=== PATIENT | female | born 2005 ===

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

== ENCOUNTER → 2024-05-21 13:19 | Emergency (ER) | payer OTHER, SELFPAY | END | disposition left against medical advice (07) | PROVIDERS: Emergency Provider Nurse Practitioner | DX: Z53.21 Procedure and treatment not carried out due to patient leaving prior to being seen by health care provider (principal) | CPT/HCPCS: 99199 ==

== ENCOUNTER 2024-12-11 13:18 | Emergency (ER) | payer OTHER, SELFPAY ==
--- OUTSIDE RECORDS SUMMARY | 2024-12-11 13:25 | XMS_ITS | Encounter Summary ---
Author Organization [facility] Healthcare Address [address] [place] [address] Care Team Providers Care System Sales Consultant Name Role Phone Ebenezer Fairchild MD Primary Care Provider + Reason for Visit * Reason Onset Date Comments Vomiting 12/11/2024 Abdominal Pain 12/11/2024 Encounter Details Date Type Department Care Team (Late st Contact Info) Description 12/11/2024 Nurse Triage [facility] Primary Care at [address] [place] [phone] Ilia Umaña, RN Social History Tobacco Use Types Packs/Day Years Used Date Smoking Tobacco: Never Alcohol Use Standard Drinks/Week Comments Never 0 (1 standard drink = 0.6 oz pur e alcohol) PHQ-2 Answer Date Recorded PHQ-2 Total Score (If total score is 3 or more points, staff should administer the PHQ-9) 0 08/02/2024 PHQ-9 Answer Date Recorded PHQ-9 Total Score 11 04/02/2024 Personal Safety Answer Date Recorded Have you ever been in or are you currently in a harmful physical or emotional relationship or is someone making you feel afraid or unsafe? 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 Reason for Conversation Vomiting Background Nuvia Mcdonough Has c/o constant abdominal pain 4/10 this AM. Vomiting x 2-3 days, denies any vomiting today, yesterday had vomiting x 2. Denies vomiting any blood. Intermittent hot and cold flashes, unsure of temp.FIELD 3/10 at this time, yesterday 710. Intermittent dizziness, denies at this time. RN guideline sd mmends Go to ED/UCC or Office with PCP Approval. Secure chat to Jennifer Krueger NP: Provider contacted via secure chat for ED disposition consult. Recommendation from provider:Proceedto ED or CC. Attempted to call pt x 3 to advise, voicemail states person is not accepting calls. town marshal attempted to call Tena listed on HIPAA, unable to contact her. Jennifer Krueger NP has been notified of this per secure chat. Routed to PCP: FYI Disposition Go to ED/UCC Now (or to Office With PCP Approval) Reason for Disposition Constant abdominal pain lasting > 2 hours Protocols Used Flhclyir-Qpbsk-EJ * Telephone Encounter - Sadia Conroy RN - 12/11/2024 11:36 AM CDT Regarding: vomiting, hot and cold flashes, feeling irritated ----- Message from Danuta Cabrera sent at 12/11/2024 10:47 AM CDT ----- Symptom Based Call Chief Complaint(s): vomiting, hot and cold flashes, feeling irritated Duration: 2-3 days What type of symptom(s) is the patient experiencing? Non-Emergent. Is this a new or reoccurring symptom(s)? new What have you tried to help your symptom(s)? Tylenol, Robitussin, ibuprofen Why was appointment not scheduled? Appointment availability did not meet the patient's need. Additional Comments: Patient reports not feeling well stating she has been vomiting, hot and cold flashes, and feeling irritated. Does message need to be routed? Yes-Action Needed documented in this encounter Plan of Treatment Not on file documented as of this encounter Visit Diagnoses Not on filedocumented in this encounter Care Teams System Sales Consultant Relationship Specialty Start Date End Date Ebenezer Fairchild MD [address] [id number] PCP - General Family Medicine 04/02/24 documented as of this encounter
--- OUTSIDE RECORDS SUMMARY | 2024-12-11 13:25 | XMS_ITS | Referral Summary ---
Author Organization [facility] Address [address] [place] [address] Care Team Providers Care Planer Hand Name Role Phone Ebenezer Fairchild MD Primary Care Provider + Encounters Date Type Department Care Team Description 12/11/2024 Nurse Triage [facility] Primary Care at [address] [phone] Ilia Umaña, RN 09/20/2024 Orders Only [facility] Primary Care at [address] [phone] Ebenezer Fairchild MD Hepatitis A immune (Primary Dx) 09/19/2024 Telephone [facility] Primary Care at [address] [phone] Ebenezer Fairchild MD Additional Services Or Orders from Last 3 Months Allergies No known active allergies Medications etonogestreL (NEXPLANON) 68 mg implantIndication s: Contraception Will place one implant in L arm 1 each 4 Active Additional Information Patient not taking.Reported on 08/02/2024 multivit 70-xazn-llgpsq 1-dha 27 mg iron-1 mg -300 mg capsuleIndication s:Mineral Deficiency,Minera l Deficiency Prevention,Vitami n Deficiency,Vitami n Deficiency Prevention Take one tab daily even if not trying to get . Used as daily vitamin. 30 capsule 11 4 Active Additional Information Patient not taking.Reported on 08/02/2024 ARIPiprazole (ABILIFY) 2 mg tablet 5 Active hydrOXYzine (VISTARIL) 25 mg capsule 5 Active OXcarbazepine (TRILEPTAL) 300 mg tablet 5 Active naltrexone (DEPADE) 50 mg tablet Take 1 tablet (50 mg total) by mouth daily Active Active Problems Problem Noted Date Diagnosed Date Menorrhagia 04/02/2024 Overview (04/02/2024): Menorrhagia Pt has always had irregular and heavy periods. She has never been able to trak them due to irregularity. 02/09/24: Started DEPO: due 04/10 due for second shot. No side effects: Still having bleeding daily, light but has been almost daily. Previous contraception: nexplanon in past: 3 years. Would like to get that again. Would like to switch to a different medication: has decided on nexplanon Assessment & Plan (04/02/2024 10:41 AM PRODUCT SAFETY OFFICER): Plan - Advised period tracker estrada - DEPO shot 04/10 DC - Nexplanon desired: will order and place at next visit 04/10 preferred: Educated that she will need to use condoms for at least 1 week after insertion, have 2w follow up to confirm has not migrated after placement, - Advised pt to start taking PNV-FE even if not wanting to get per ACOG recs. - Pt with allergy to ibuporophen along with fam hx of allergy. Will avoid NSAID's - Education handout given - CBC, CMP, TSH today Contraception management 04/02/2024 Assessment & Plan (04/02/2024 10:34 AM PRODUCT SAFETY OFFICER): Current med: Depo started 02/09/24: SE: still having daily bleeding. Pt would like to get in the next few years. When DC medication she would like her fertility restored. After education and shared decision making she has decided to get nexplanon. Plan - Have educated pt that contraception does not prevent STI and advised her to always use protection when with new partners and not in monogamous relationship. She expressed her understanding. - Place nexplanon at next visit: - educated on procedure, SE, risk assocaited with proced. She would like to proced. - poc [facility] at that time - Education handout given today History of recent Miscarriage 04/02/2024 Assessment & Plan (04/02/2024 10:27 AM PRODUCT SAFETY OFFICER): Recent with MC <6 weeks. Denies any fever, chills, night sweats, cramping, DC, bleeding, abd/pelvic pain. No follow up labs or exam. Plan - Will check quant [facility] Immunizations Immunization Administration Dates Next Due DTaP 01/01/2010,07/18/2006 DTaP / Hep B / IPV 07/22/2005,05/02/2005, 005 HPV9 07/06/2017,01/02/2017 Hep A, Ped Unspecified 05/25/2007 Hep A, Pediatric 08/12/2011 Hep B, Adolescent or Pediatric 2004 HiB 07/18/2006, 6,05/02/2005,03/02 IPV 01/01/2010 Influenza, Live, Intranasal, Quadrivalent 04/01/2014 Influenza, Quadrivalent, Spl it, Preservative Free, Intramuscular 06/14/2019,03/06/2017,07/09/2015 Influenza, Unspecified 03/07/2023(Deferr ed: Patient Refused),05/25/2007,03/22/2006 MMR 01/01/2010,03/22/2006 Meningococcal B, OMV (Bexsero) 10/14/2021 Meningococcal Conjugate (Menveo) 01/01/2016 Meningococcal MCV4P (Menactra) 10/14/2021 Pneumococcal Conjugate 7-Valent 12/29/19 06,07/22/2005,05/02/2005,03/02 Tdap 07/09/2015 Varicella 01/01/2010,03/22/2006 Social History Tobacco Use Types Packs/Day Years Used Date Smoking Tobacco: Never Tobacco Cessation:Counseling Given: Not Answered Alcohol Use Standard Drinks/Week Comments Never 0 [...] on file Legal Sex Female 10:15 AM PRODUCT SAFETY OFFICER Gender Identity Not on file Sexual Orientation Not on file Last Filed Vital Signs Vital Sign Reading Time Taken Comments Blood Pressure 150/81 09/02/2024 6:05 PM CDT Pulse 111 09/02/2024 6:05 PM CDT Temperature 37.2 C (98.9 F) 09/02/2024 6:05 PM CDT Respiratory Rate 16 09/02/2024 6:05 PM CDT Oxygen Saturation 100% 09/02/2024 6:05 PM CDT Inhaled Oxygen Concentration - - Weight 45.4 kg (100 lb) 09/02/2024 6:05 PM CDT Height 162.6 cm (5' 4) 09/02/2024 6:05 PM CDT Body Mass Index 17.16 09/02/2024 6:05 PM CDT Plan of Treatment Not on file Insurance [place] [address] [facility] Care Teams Planer Hand Relationship Specialty Start Date End Date Ebenezer Fairchild MD [address] [facility] [address] [place] [address] PCP - General Family Medicine 04/02/24
--- OUTSIDE RECORDS SUMMARY | 2024-12-11 13:25 | XMS_ITS | Clinical Summary ---
Author Organization [facility] Address [address] [place] [phone] Care Team Providers Care Rubber Washer Name Role Phone Ebenezer Fairchild MD Primary Care Provider + Allergies No known active allergies Medications etonogestreL (NEXPLANON) 68 mg implantIndication s: Contraception Will place one implant in L arm 1 each 4 Active Additional Information Patient not taking.Reported on 08/02/2024 multivit 15-maml-clzrvj 1-dha 27 mg iron-1 mg -300 mg [...] nexplanon Assessment & Plan (04/02/2024 10:41 AM STOCK PATCHER): Plan - Advised period tracker estrada - [...] 04/02/2024 Assessment & Plan (04/02/2024 10:34 AM STOCK PATCHER): Current med: Depo started 02/09/24: SE: still [...] She would like to proced. - poc bHCG at that time - Education handout given today History of recent Miscarriage 04/02/2024 Assessment & Plan (04/02/2024 10:27 AM STOCK PATCHER): Recent with MC <6 weeks. Denies any fever, chills, night sweats, cramping, DC, bleeding, abd/pelvic pain. No follow up labs or exam. Plan - Will check quant bHCG Encounters Date Type Department Care Team Description 12/11/2024 Nurse Triage [facility] Medical Group Primary Care at [address] [place] [phone] Ilia Umaña, KATELYN 09/20/2024 Orders Only [facility] Medical [facility] Primary Care at [address] [place] [phone] Ebenezer Fairchild MD Hepatitis A immune (Primary Dx) 09/19/2024 Telephone [facility] Primary Care at [address] [phone] Ebenezer Fairchild MD Additional Services Or Orders from Last 3 Months Immunizations Immunization Administration Dates Next Due DTaP [...] on file Legal Sex Female 10:15 AM STOCK PATCHER Gender Identity Not on file Sexual Orientation Not on file Obstetrics History Para Term AB IAB SAB Ectopic Multiple Livin g Live Births 1 Date Outcome GA Total Labor Labor//3rd Weight Sex Type Anes PTL Maryam A1 A5 Name Clin Growth Chart Information Age Height Weight Dtltsy-enx-dqzo th Percentile BMI Percentile Head Circum Head Circum Percentile Date 18 years 162.6 cm (5' 4) 45.4 kg (100 lb) 1.98%* 2024 18 years 162.6 cm (5' 4) 45.4 kg (100 lb) 1.98%* 2024 18 years 162.6 cm (5' 4) 45.4 kg (100 lb) 1.98%* 2024 18 years 162.6 cm (5' 4) 49.9 kg (110 lb) 14.48%* 2023 17 years 162.6 cm (5' 4) 47.6 kg (105 lb) 6.79%* 2023 16 years 46.5 kg (102 lb 8 oz) 2021 15 years 44.4 kg (97 lb 14.2 oz) 2020 11 years 33.7 kg (74 lb 4.7 oz) 2017 * [facility] NAMED [facility] (Girls, 2-20 Years) Last Filed Vital Signs Vital Sign Reading [...] 09/02/2024 6:05 PM CDT Plan of Treatment Health Maintenance Due Date Last Done Comments Hepatitis C Screening 2004 Meningococcal B Vaccine (2 o f 2 - Bexsero SCDM 2-dose series) 04/16/2022 10/14/2021 Regular Well Visit/Exam 18-64 2022 Influenza Vaccine (#1) 2025 , 03/06/2017, 07/09/2015, Additional history exists DTaP/Tdap/Td Vaccine (7 - Td or Tdap) 07/09/2025 07/09/2015, 01/01/2010, 07/18/2006, Additional history exists Depression Screening 08/02/2025 08/02/2024, 04/02/20 24 Hepatitis B Screening Completed 07/22/2005 , 05/02/2005, 03/02/2005, Additional history exists Pneumococcal vaccine <65 Completed 006, 07/22/2005, 05/02/2005, Additional history exists Varicella Vaccines Completed 01/01/2010, 03/22/2006 HPV Vaccines Completed 07/06/2017, 01/02/2017 Meningococcal Vaccine Completed 10/14/2021, 016 Insurance [facility] Care Teams Rubber Washer Relationship Specialty Start Date End Date Ebenezer Fairchild MD [address] [facility] [address] [place] [place] [id number] PCP - General Family Medicine 04/02/24
[2024-12-11 13:28] VITALS: BP 120/80; PULSE 77; RESP 16; TEMP 36.3; O2SAT 100
--- NOTE | 2024-12-11 13:51 | ED_ITS ---
HPI - URI/Sore Throat General Chief Complaint: Upper Respiratory Infection Stated Complaint: Cold Symptoms Time Seen by Provider: 12/11/24 13:51 Source: patient and RN notes reviewed Mode of arrival: ambulatory Limitations: no limitations History of Present Illness HPI Narrative: 18-year-old male presented for complaint of headache, fatigue, runny nose, nausea and vomiting, subjective fever/chills. Onset yesterday. Denies cough sob, wheezing, diarrhea, constipation or urinary complaints. took Tylenol, ibuprofen, and Robitussin last night. States she feels better today than she did yesterday. No vomiting today. MD elicited complaint: cough Related Data Home Medications ?Medication ?Instructions ?Recorded ?Confirmed ?Last Taken ?Type aripiprazole 5 mg tablet mg 12/11/24 Unknown History Allergies Allergy/AdvReac Type Severity Reaction Status Date / Time No Known Allergies Allergy Verified 12/11/24 13:37 Review of Systems Review of Systems: CONSTITUTIONAL: Endorses malaise, denies body aches, chills, sweats, fever EYES: Denies visual changes, redness, or discharge ENT: Reports rhinorrhea, congestion denies otalgia, sore throat CARDIOVASCULAR: Denies chest pain, palpitations, edema RESPIRATORY: Reports cough, post nasal drainage. Denies dyspnea GASTROINTESTINAL: Denies abdominal pain, diarrhea reports nausea, vomiting SKIN: Denies rash or itching Exam Narrative: GENERAL: mildly Ill-appearing, nontoxic no acute distress. EYES: conjunctivae clear ENT: Mucous membranes moist. TMs pearly francisco with dull light reflex bilaterally; no tragal tenderness. Oropharynx not erythematous without lesions or exudate, no drooling, no hoarseness, no trismus, uvula midline. No tripod positioning, muffled voice, soft palate or pharyngeal wall bulging NECK: Supple. No lymphadenopathy CHEST: Clear to auscultation, breath sounds equal. HEART: Regular rate and rhythm. SKIN: Warm, dry, no rash. NEURO: Alert and oriented x3. PSYCH: Normal mood and affect Course Course Emergency Course: Patient is aware of diagnosis, understands and agrees to treatment plan. Anticipatory guidance given. Patient agrees to follow-up as directed and is aware of reasons to seek care at the emergency department. Portions of this record may have been created with voice recognition software Level of Care: Express Care Visit Vital Signs Vital signs: Vital Signs Temperature 97.4 F L 12/11/24 13:28 Pulse Rate 77 12/11/24 13:28 Respiratory Rate 16 12/11/24 13:28 Blood Pressure 120/80 12/11/24 13:28 Pulse Oximetry 100 12/11/24 13:28 Oxygen Delivery Room Air 12/11/24 13:28 Temperature 97.4 F L 12/11/24 13:28 Pulse Rate 77 12/11/24 13:28 Respiratory Rate 16 12/11/24 13:28 Blood Pressure 120/80 12/11/24 13:28 Pulse Oximetry 100 12/11/24 13:28 Oxygen Delivery Room Air 12/11/24 13:28 reviewed MDM - URI/Sore Throat MDM Narrative Medical decision making narrative: Discussed physical exam findings , negative flu and COVID tests. Advised supportive measures and signs/symptoms to go to the ER. Pt is appropriate for outpt treatment and f/u. Differential Diagnosis Differential diagnosis: Likely upper respiratory infection, otitis media, sinusitis, viral infection, influenza and pharyngitis Discharge Plan Discharge Clinical Impression: Viral infection Patient Disposition: Home Condition: Stable Instructions: Antibiotic Form, Upper Respiratory Infection (ED) Additional Instructions: Your rapid covid/flu test was negative today. It may be too early to detect the virus, therefore we recommend retesting at home in 1-2 days Continue to follow general precautions: frequent handwashing, wear a mask, isolate/social distance, and avoid crowds if you have a fever. You must be fever free for 24 hours without the use of fever reducing medication (Tylenol/ibuprofen) before returning to work/school/crowds. Recommendations: Flonase spray and Zyrtec (or Claritin/Edna) over the counter Cough syrup may cause drowsiness; avoid driving or take it at night time. Tylenol 1000mg every 8 hours as needed for pain Symptomatic treatment includes: rest, fluids, and increase humidity of the air at home. Follow up with your primary care provider in 1 week. Go to the ER for worsening symptoms or concerns. Patient Language: East Timorese Prescriptions: No Action aripiprazole 5 mg tablet Follow-up/Referrals: UNKNOWN,DOCTOR [Primary Care Provider] - Stand Alone Forms: Work/School Release IP Time of Disposition: 13:57
[2024-12-11 13:59] LABS: EDCOVIDSCREEN Negative (Negative); EDINFLUASCREEN Negative (Negative); EDINFLUBSCREEN Negative (Negative)
== END 2024-12-11 14:00 | disposition home or self-care (01) ==
PROVIDERS: Emergency Provider Nurse Practitioner Family
DX: B34.9 Viral infection, unspecified (principal); Z20.822 Contact with and (suspected) exposure to COVID-19
CPT/HCPCS: 87426; 87804; 99202; G0463